=== PATIENT | female | born 1985 | race American Indian/Alaskan Native ===

== ENCOUNTER 2018-06-29 10:26 | Emergency (ER) | payer OTHER ==
[2018-06-29 10:37] VITALS: BP 134/81
[2018-06-29] MEDS ORDERED: TORADOL IM ONE (13:43)
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
== END 2018-06-29 17:25 | disposition home or self-care (01) ==
LOC: ED 10:26
DX: S92.901A Unspecified fracture of right foot, initial encounter for closed fracture (principal); S46.811A Strain of other muscles, fascia and tendons at shoulder and upper arm level, right arm, initial encounter; S86.911A Strain of unspecified muscle(s) and tendon(s) at lower leg level, right leg, initial encounter; M25.561 Pain in right knee; M54.2 Cervicalgia; M54.6 Pain in thoracic spine; F17.200 Nicotine dependence, unspecified, uncomplicated; V89.2XXA Person injured in unspecified motor-vehicle accident, traffic, initial encounter; Y93.89 Activity, other specified; Y92.488 Other paved roadways as the place of occurrence of the external cause; Y99.8 Other external cause status
CPT/HCPCS: 72040; 73630; 96372; 99283; J1885